=== PATIENT | male | born 1935 | race Caucasian/White ===

== ENCOUNTER → 2020-04-23 | Outpatient (CLI) | payer OTHER ==
[~2020-04-23] MED LIST: ACETAMINOPHEN-1 EAC1 PO; ATORVASTATIN CA40 MG PO; AUGMENTIN 875-1 EACH PO; CLINDAMYCIN HC300 MG PO; COLACE100 MG PO; FINASTERIDE5 MG PO; FUROSEMIDE20 MG PO; POTASSIUM CHLO10 ME2 PO; PROTONIX 40 MG40 M1 PO; SINGULAIR10 MG PO; SOTALOL120 MG PO; TYLENOL #3 PO; XARELTO 15 MG T15 MG PO
== END ==
LOC: CATH 08:12
DX: Z45.010 Encounter for checking and testing of cardiac pacemaker pulse generator [battery] (principal); I49.5 Sick sinus syndrome; I25.119 Atherosclerotic heart disease of native coronary artery with unspecified angina pectoris; I10 Essential (primary) hypertension; I48.91 Unspecified atrial fibrillation; E78.5 Hyperlipidemia, unspecified; K44.9 Diaphragmatic hernia without obstruction or gangrene; F41.9 Anxiety disorder, unspecified; Z20.822 Contact with and (suspected) exposure to COVID-19; Z86.79 Personal history of other diseases of the circulatory system; Z79.899 Other long term (current) drug therapy; Z79.01 Long term (current) use of anticoagulants; Z82.49 Family history of ischemic heart disease and other diseases of the circulatory system
CPT/HCPCS: 33213; 71045; 99152; 99153; C1785; J1200; J2250; J3010; J3370; J7040; J7050

== ENCOUNTER 2020-06-06 19:31 | Emergency (ER) | payer MEDICARE, OTHER ==
[~2020-06-06 19:31] MED LIST changes: -AUGMENTIN 875-1 EACH PO
[2020-06-06 20:21] LABS: HEMOGLOBIN 12.8 gm/dl (14.0-17.5); RED BLOOD COUNT 4.18 M/UL (4.20-5.50)
[2020-06-07] MEDS ORDERED: AUGMENTIN 875-1 EACH PO (00:43)
== END 2020-06-07 01:37 | disposition home or self-care (01) ==
LOC: ER1 19:31
PROVIDERS: Family Medicine
DX: K52.9 Noninfective gastroenteritis and colitis, unspecified (principal); I51.9 Heart disease, unspecified
CPT/HCPCS: 36415; 74018; 80053; 81001; 83690; 85025; 87086; 99284; Q9967